=== PATIENT | male | born 1940 | race Caucasian/White ===

== ENCOUNTER 2018-05-16 08:05 | Day surgery (SDC) | payer MEDICARE, OTHER, MEDICAID ==
[2018-05-16] MEDS ORDERED: LIDOCAINE 2% (SDV) 5 ML INJ (10:42)
[2018-05-16] MEDS ORDERED: PROPOFOL 40 ML (10:42)
== END 2018-05-16 15:12 | disposition home or self-care (01) ==
LOC: GIL 08:05
DX: R19.4 Change in bowel habit (principal); D12.0 Benign neoplasm of cecum; K29.70 Gastritis, unspecified, without bleeding; K64.8 Other hemorrhoids; K57.90 Diverticulosis of intestine, part unspecified, without perforation or abscess without bleeding; E11.9 Type 2 diabetes mellitus without complications; I10 Essential (primary) hypertension; I25.10 Atherosclerotic heart disease of native coronary artery without angina pectoris; E78.5 Hyperlipidemia, unspecified; Z79.02 Long term (current) use of antithrombotics/antiplatelets; Z79.4 Long term (current) use of insulin
CPT/HCPCS: 43239; 82962; 88305; 88312